=== PATIENT | male | born 1965 | race Caucasian/White ===

== ENCOUNTER 2021-06-30 11:13 | Inpatient (IN) | payer MEDICAID ==
[~2021-06-30] VITALS: Ht 167.6 cm; Wt 76.4 kg
[2021-06-30 12:19] LABS: BASOPHILS % 1.4 % (0.0-2.0); EOSINOPHILS % 3.9 % (0.0-5.0); HEMATOCRIT. 23.4 % (42.0-52.0); HEMOGLOBIN. 7.5 g/dL (14.0-18.0); LYMPHOCYTES % 19.6 % (20.0-50.0); MEAN CORPUSCULAR HEMOGLOBIN 26.1 pg (28.0-32.0); MEAN CORPUSCULAR VOLUME 81.4 fL (80.0-94.0); MEAN PLATELET VOLUME 9.1 fl (7.4-10.4); MONOCYTES % 9.9 % (2.0-8.0); NEUTROPHILS % 65.2 % (40.0-76.0); PLATELET 176 x1000/uL (130-400); RED BLOOD CELL COUNT 2.87 mill/uL (4.7-6.1); RED CELL DISTRIBUTION WIDTH 24.5 % (11.6-14.6)
[2021-06-30 12:27] LABS: CHLORIDE 110 mEq/L (98-107)
[2021-06-30 13:03] LABS: INR 1.5; PARTIAL THROMBOPLASTIN TIME 36.7 sec (23.4-31.0); PROTHROMBIN TIME 15.3 sec (9.6-11.0)
[2021-06-30 13:09] LABS: PLATELET ESTIMATE NORMAL
[2021-06-30] MEDS ORDERED: CEFTRIAXONE 1 G PREMIX 50 ML IV ONE (15:15)
[2021-06-30] MEDS ORDERED: CEFTRIAXONE 1,000 MG in DEXTROSE 5% WATER 50 ML IV NR (17:00)
[2021-06-30 17:58] VITALS: BP 119/65
[2021-06-30 18:00] VITALS: BP 119/65
[2021-06-30] MEDS ORDERED: FERR325T23 MT (18:07)
[2021-06-30] MEDS ORDERED: PANT40TA51 MT (18:07)
[2021-06-30] MEDS ORDERED: ONDANSETRON HCL 4MG/2ML INJ IV PRN (18:15)
[2021-06-30] MEDS ORDERED: ACETAMINOPHEN 325MG TABLET PO PRN ×2 (18:15)
[2021-06-30] MEDS ORDERED: CLONIDINE 0.1MG TABLET PO PRN (18:15)
[2021-06-30] MEDS ORDERED: DEXTROSE 50% WATER 50ML SYRINGE IV PRN (18:15)
[2021-06-30] MEDS ORDERED: DIPHENHYDRAMINE 50MG/ML VIAL IV PRN (18:15)
[2021-06-30 20:15] VITALS: BP 119/69
[2021-06-30] MEDS: BLOOD SUGAR DIAGNOSTIC STRIP TEST SCH (20:34)
[2021-06-30] MEDS: INSULIN LISPRO 100 UNITS/ML SUBCUT SCH (20:34)
[2021-06-30] MEDS: SODIUM CHLORIDE 0.9% INJ 3ML FLUSH IVF SCH (20:50)
[2021-06-30] MEDS: PANTOPRAZOLE SODIUM 40 MG/VIAL IV SCH (20:50)
[2021-06-30 23:38] LABS: CLARITY URINE CLEAR (CLEAR); COLOR URINE YELLOW (YELLOW); KETONES URINE NEGATIVE (NEGATIVE); LEUKOCYTE ESTERASE URINE NEGATIVE (NEGATIVE); NITRITE URINE NEGATIVE (NEGATIVE); OCCULT BLOOD URINE NEGATIVE (NEGATIVE); PROTEIN URINE NEGATIVE (NEGATIVE); SPECIFIC GRAVITY URINE 1.009 (1.005-1.030); UROBILINOGEN URINE 0.2 E.U./dL (0.2-1.0)
[2021-06-30 23:50] VITALS: BP 112/62
[2021-07-01 04:30] VITALS: BP 114/67
[2021-07-01] MEDS: SODIUM CHLORIDE 0.9% INJ 3ML FLUSH IVF SCH ×3 (06:03→21:14)
[2021-07-01] MEDS: BLOOD SUGAR DIAGNOSTIC STRIP TEST SCH (06:29)
[2021-07-01] MEDS: INSULIN LISPRO 100 UNITS/ML SUBCUT SCH (07:13)
[2021-07-01 08:02] VITALS: BP 113/69
[2021-07-01] MEDS: PANTOPRAZOLE SODIUM 40 MG/VIAL IV SCH ×2 (08:58→21:14)
[2021-07-01 10:17] LABS: HEMATOCRIT 24.8 % (42.0-52.0); HEMOGLOBIN 7.8 g/dL (14.0-18.0); MEAN CORPUSCULAR HEMOGLOBIN 25.7 pg (28.0-32.0); MEAN CORPUSCULAR VOLUME 81.7 fL (80.0-94.0); PLATELET 143 x1000/uL (130-400); RED BLOOD CELL COUNT 3.04 mill/uL (4.7-6.1); RED CELL DISTRIBUTION WIDTH 23.4 % (11.6-14.6)
[2021-07-01 10:47] LABS: TOTAL IRON BINDING CAPACITY 337 ug/dL (250-450)
[2021-07-01 11:52] VITALS: BP 111/63
[2021-07-01] MEDS: IRON SUCROSE COMPLEX 100 MG/5 ML ML IV SCH (13:11)
[2021-07-01 15:36] VITALS: BP 120/64
[2021-07-01 20:00] VITALS: BP 121/68
[2021-07-02] VITALS: BP 116/67
[2021-07-02 07:33] VITALS: BP 115/65
[2021-07-02 08:36] LABS: HEMATOCRIT 24.2 % (42.0-52.0); HEMOGLOBIN 7.8 g/dL (14.0-18.0); MEAN CORPUSCULAR VOLUME 81.2 fL (80.0-94.0); PLATELET 164 x1000/uL (130-400); RED BLOOD CELL COUNT 2.98 mill/uL (4.7-6.1); RED CELL DISTRIBUTION WIDTH 23.2 % (11.6-14.6)
[2021-07-02 08:44] LABS: INR 1.5; PROTHROMBIN TIME 15.5 sec (9.6-11.0)
[2021-07-02] MEDS ORDERED: FOLIC ACID 1MG TABLET PO SCH (09:00)
[2021-07-02] MEDS ORDERED: THIAMINE HCL 100MG TABLET PO SCH (09:00)
[2021-07-02 09:19] LABS: FOLIC ACID (FOLATE) SERUM 16.2 ng/mL (>5.38)
[2021-07-02] MEDS: PANTOPRAZOLE SODIUM 40 MG/VIAL IV SCH (09:52)
[2021-07-02] MEDS: IRON SUCROSE COMPLEX 100 MG/5 ML ML IV SCH (09:52)
[2021-07-02] MEDS ORDERED: *PATIENT'S OWN MEDICATION STORAGE XX SCH (10:15)
[2021-07-02 11:50] VITALS: BP 113/65
[2021-07-02] MEDS: SODIUM CHLORIDE 0.9% INJ 3ML FLUSH IVF SCH (13:46)
[2021-07-02 15:50] VITALS: BP 119/63
[2021-07-02 16:01] VITALS: BP 119/63
== END 2021-07-02 18:24 | disposition home or self-care (01) | DRG 280 ==
LOC: ER 11:13 → 6WST 13:50 → ENRESERV 15:24
PROVIDERS: ADMIT Internal Medicine; ATTEND Internal Medicine
PROC: 0W9G3ZZ Drainage of Peritoneal Cavity, Percutaneous Approach (ICD-10-PCS; principal; 2021-07-02)
DX: K70.31 Alcoholic cirrhosis of liver with ascites (principal); K85.90 Acute pancreatitis without necrosis or infection, unspecified; E43 Unspecified severe protein-calorie malnutrition; D68.4 Acquired coagulation factor deficiency; K76.6 Portal hypertension; K57.91 Diverticulosis of intestine, part unspecified, without perforation or abscess with bleeding; E88.09 Other disorders of plasma-protein metabolism, not elsewhere classified; C64.2 Malignant neoplasm of left kidney, except renal pelvis; K31.9 Disease of stomach and duodenum, unspecified; D50.9 Iron deficiency anemia, unspecified; F17.200 Nicotine dependence, unspecified, uncomplicated; J44.9 Chronic obstructive pulmonary disease, unspecified; Z20.822 Contact with and (suspected) exposure to COVID-19; F41.9 Anxiety disorder, unspecified; K21.9 Gastro-esophageal reflux disease without esophagitis; K86.1 Other chronic pancreatitis; K80.20 Calculus of gallbladder without cholecystitis without obstruction; F10.10 Alcohol abuse, uncomplicated; Y90.9 Presence of alcohol in blood, level not specified; Z79.899 Other long term (current) drug therapy; Z88.6 Allergy status to analgesic agent; Z68.27 Body mass index [BMI] 27.0-27.9, adult; Z87.19 Personal history of other diseases of the digestive system; N28.89 Other specified disorders of kidney and ureter; K64.9 Unspecified hemorrhoids
CPT/HCPCS: 36415; 49083; 71045; 74176; 76705; 80053; 80076; 81003; 82270; 82607; 82728; 82746; 82962; 83036; 83540; 83550; 83615; 84484; 85025; 85027; 85044; 86850; 86900; 87426; 93005; 99285; C9113; J0696; J7060

== ENCOUNTER 2022-12-07 15:26 | Inpatient (IN) | payer MEDICAID ==
[~2022-12-07] VITALS: Ht 167.6 cm; Wt 83.9 kg
[~2022-12-07 15:26] MED LIST: FERR325T23 MT; PANT40TA51 MT
[2022-12-07] MEDS ORDERED: SUCCINYLCHOLINE CHLORIDE 200MG/10ML IV ONE (15:45)
[2022-12-07] MEDS ORDERED: ETOMIDATE 2MG/ML 10ML VIAL IV ONE (15:45)
[2022-12-07 15:58] LABS: BASOPHILS % 0.7 % (0.0-2.0); EOSINOPHILS % 1.6 % (0.0-5.0); HEMATOCRIT. 39.5 % (42.0-52.0); HEMOGLOBIN. 12.9 g/dL (14.0-18.0); LYMPHOCYTES % 23.6 % (20.0-50.0); MEAN CORPUSCULAR HEMOGLOBIN 28.9 pg (28.0-32.0); MEAN CORPUSCULAR HGB CONC 32.7 g/dL (31.0-37.0); MEAN CORPUSCULAR VOLUME 88.2 fL (80.0-94.0); MEAN PLATELET VOLUME 8.7 fl (7.4-10.4); MONOCYTES % 8.2 % (2.0-8.0); NEUTROPHILS % 65.9 % (40.0-76.0); PLATELET 118 x1000/uL (130-400); RED BLOOD CELL COUNT 4.48 mill/uL (4.7-6.1); RED CELL DISTRIBUTION WIDTH 16.8 % (11.6-14.6); WHITE BLOOD COUNT 9.5 x1000/uL (4.5-11.0)
[2022-12-07 16:00] VITALS: PULSE 112; RESP 14
[2022-12-07 16:03] LABS: CHLORIDE 107 mEq/L (98-107); INDEX HEMOLYSI 1 (1-3); INDEX ICTERIC 1 (1-4); INDEX LIPEMIC 1 (1-3); POTASSIUM 3.1 mEq/L (3.5-5.1); SODIUM 137 mEq/L (136-145)
[2022-12-07 16:04] LABS: INR 1.3
[2022-12-07 16:07] LABS: AMMONIA 49 uMol/L (<32)
[2022-12-07 16:11] LABS: ACETAMINOPHEN <2 ug/mL ug/mL (10-30); ALANINE AMINOTRANSFERASE 29 IU/L (13-61); ALBUMIN 2.9 g/dL (3.4-5.0); ASPARTATE AMINOTRANSFERASE 55 IU/L (15-37); BILIRUBIN TOTAL 1.8 mg/dL (0.1-1.0); CALCIUM 8.5 mg/dL (8.5-10.1); CARBON DIOXIDE 21 mEq/L (21-32); CREATININE 0.5 mg/dL (0.6-1.3); ETHANOL BLOOD < 10 mg/dL (<10); GLUCOSE 192 mg/dL (70-105); PROTEIN TOTAL 8.7 g/dL (6.0-8.3); UREA NITROGEN BLOOD 8 mg/dL (7-21)
[2022-12-07] MEDS ORDERED: MIDAZOLAM 100MG/100ML PMX 100 ML IV PRN (16:15)
[2022-12-07 16:29] LABS: TROPONIN I HIGH SENSITIVITY 4 ng/L (<78)
[2022-12-07] MEDS ORDERED: PROPOFOL 200MG/20ML VIAL IV ONE (16:30)
[2022-12-07] MEDS ORDERED: MIDAZOLAM HCL 100 MG in SODIUM CHLORIDE 0.9% 100 ML IV PRN (16:30)
[2022-12-07] MEDS ORDERED: NICARDIPINE 40MG/200ML PREMIX 200 ML IV NR (16:40)
[2022-12-07] MEDS ORDERED: LEVETIRACETAM 500MG PREMIX 100 ML IV ONE (16:45)
[2022-12-07] MEDS ORDERED: LEVETIRACETAM 1000MG PREMIX 100 ML IV NR (16:56)
[2022-12-07 16:57] VITALS: O2SAT 100
[2022-12-07] MEDS ORDERED: MANNITOL 12.5G (25%) VIAL 50ML IV NR (17:00)
[2022-12-07] MEDS ORDERED: DESMOPRESSIN ACETATE IV NR (17:15)
[2022-12-07] MEDS ORDERED: SODIUM CHLORIDE 0.9% IV NR (17:15)
[2022-12-07 17:17] LABS: CLARITY URINE CLOUDY (CLEAR); COLOR URINE DARK YELLOW (YELLOW); GLUCOSE URINE NEGATIVE (NEGATIVE); KETONES URINE NEGATIVE (NEGATIVE); LEUKOCYTE ESTERASE URINE 2+ (NEGATIVE); NITRITE URINE NEGATIVE (NEGATIVE); OCCULT BLOOD URINE 2+ (NEGATIVE); PH URINE 5.5 (4.5-8.0); PROTEIN URINE 2+ (NEGATIVE); SPECIFIC GRAVITY URINE 1.023 (1.005-1.030)
[2022-12-07] MEDS ORDERED: MANNITOL IV NR (17:30)
[2022-12-07 17:55] LABS: *AMPHETAMINES SCREEN URINE NEGATIVE (NEGATIVE); *BARBITURATES SCREEN URINE NEGATIVE (NEGATIVE); *BENZODIAZEPINES SCREEN URINE NEGATIVE (NEGATIVE); *COCAINE SCREEN URINE NEGATIVE (NEGATIVE); CANNABINOID URINE SCREEN NEGATIVE (NEGATIVE); ECSTASY MDMA SCREEN URINE NEGATIVE (NEGATIVE); METHADONE URINE SCREEN NEGATIVE (NEGATIVE); OPIATES URINE SCREEN NEGATIVE (NEGATIVE); PHENCYCLIDINE URINE SCREEN NEGATIVE (NEGATIVE)
[2022-12-07 18:18] LABS: BACTERIA URINE 1+; SQUAMOUS EPITHELIAL CELL URINE FEW /lpf (RARE/1+); WBC URINE 25-50 /hpf (0-2)
[2022-12-07] MEDS ORDERED: IPRATROPIUM/ALBUTEROL 0.5-3(2.5)MG/3ML NEB HHN PRN (20:00)
[2022-12-07] MEDS ORDERED: IOHEXOL-350 100 ML BOTTLE ONE (20:03)
[2022-12-07 20:25] VITALS: PULSE 122; RESP 24
[2022-12-08] VITALS (62 sets, daily range): BP systolic 104–160; BP diastolic 56–87; PULSE 82–122; RESP 18–28; TEMP 99–102
[2022-12-08] MEDS ORDERED: NICARDIPINE 100 MG in SODIUM CHLORIDE 0.9% 60 ML IV PRN ×2
[2022-12-08] MEDS ORDERED: NALOXONE HCL 0.4MG/ML VIAL IV PRN (00:15)
[2022-12-08] MEDS ORDERED: CEFAZOLIN 1000MG PREMIX 50 ML IV SCH (06:00)
[2022-12-08] MEDS ORDERED: LEVETIRACETAM 500MG PREMIX 100 ML IV SCH (09:00)
[2022-12-08 09:53] LABS: BG BASE EXCESS 3.4 mmol/L (-2.0-2.0); BG CARBOXYHEMOGLOBIN 0.2 % (0.5-1.5); BG DEOXYHEMOGLOBIN 0.9 % (0.0-5.0); BG FRACTION INSPIRED OXYGEN 100; BG HCO3 ACT 25.7 mmol/L (22.0-26.0); BG METHEMOGLOBIN 0.6 % (0.0-1.5); BG OXYGEN SATURATION 99.1 % (92.0-98.5); BG OXYHEMOGLOBIN 98.3 % (94.0-97.0); BG PCO2 31.8 mmHg (35.0-45.0); BG PH 7.525 (7.350-7.450); BG PO2 283.3 mmHg (75.0-100.0); BG SAMPLE SITE RIGHT RADIAL; BG TOTAL HEMOGLOBIN 13.2 g/dL (12.0-18.0); BG VENT MODE VENT - AC
[2022-12-08] MEDS: CEFAZOLIN 1000MG PREMIX 50 ML IV SCH ×2 (14:25→19:40)
[2022-12-08] MEDS: LEVETIRACETAM 500MG PREMIX 100 ML IV SCH ×2 (14:26→21:56)
[2022-12-08] MEDS: NICARDIPINE 100 MG in SODIUM CHLORIDE 0.9% 60 ML IV PRN (19:40)
[2022-12-08] MEDS: MORPHINE SULFATE 4 MG/ML CPJ (NOT FOR IM USE) IV PRN (20:02)
[2022-12-08] MEDS ORDERED: MANNITOL 12.5G (25%) VIAL 50ML IV ONE (21:30)
[2022-12-08] MEDS ORDERED: MANNITOL 20% (20GM/100ML) BAG 500ML PREMIX IV ONE (21:30)
[2022-12-08] MEDS ORDERED: MANNITOL 20% 125 ML IV NR (23:00)
[2022-12-09] VITALS (100 sets, daily range): BP systolic 103–131; BP diastolic 59–78; PULSE 95–119; RESP 13–22; TEMP 97.3–99.7
[2022-12-09] MEDS: MORPHINE SULFATE 4 MG/ML CPJ (NOT FOR IM USE) IV PRN ×2 (01:03→21:26)
[2022-12-09] MEDS: CEFAZOLIN 1000MG PREMIX 50 ML IV SCH ×3 (03:48→20:40)
[2022-12-09 05:29] LABS: HEMATOCRIT. 38.6 % (42.0-52.0); HEMOGLOBIN. 12.4 g/dL (14.0-18.0); MEAN CORPUSCULAR HEMOGLOBIN 28.6 pg (28.0-32.0); MEAN CORPUSCULAR HGB CONC 32.2 g/dL (31.0-37.0); MEAN CORPUSCULAR VOLUME 88.9 fL (80.0-94.0); MEAN PLATELET VOLUME 9.1 fl (7.4-10.4); PLATELET 106 x1000/uL (130-400); RED BLOOD CELL COUNT 4.34 mill/uL (4.7-6.1); WHITE BLOOD COUNT 11.7 x1000/uL (4.5-11.0)
[2022-12-09 05:30] LABS: DIFFERENTIAL COMMENT 1
[2022-12-09 05:46] LABS: CALCIUM 8.2 mg/dL (8.5-10.1); CHLORIDE 112 mEq/L (98-107); INDEX HEMOLYSI 1 (1-3); INDEX ICTERIC 2 (1-4); INDEX LIPEMIC 1 (1-3); POTASSIUM 3.7 mEq/L (3.5-5.1); SODIUM 139 mEq/L (136-145)
[2022-12-09 05:53] LABS: CARBON DIOXIDE 26 mEq/L (21-32); CREATININE 0.9 mg/dL (0.6-1.3); GLUCOSE 168 mg/dL (70-105); UREA NITROGEN BLOOD 22 mg/dL (7-21)
[2022-12-09 09:01] LABS: BG BASE EXCESS -0.3 mmol/L (-2.0-2.0); BG CARBOXYHEMOGLOBIN 0.7 % (0.5-1.5); BG DEOXYHEMOGLOBIN 1.7 % (0.0-5.0); BG FRACTION INSPIRED OXYGEN 40; BG HCO3 ACT 24.2 mmol/L (22.0-26.0); BG METHEMOGLOBIN 0.1 % (0.0-1.5); BG OXYGEN SATURATION 98.3 % (92.0-98.5); BG OXYHEMOGLOBIN 97.5 % (94.0-97.0); BG PCO2 39.3 mmHg (35.0-45.0); BG PH 7.407 (7.350-7.450); BG PO2 105.9 mmHg (75.0-100.0); BG SAMPLE SITE RIGHT RADIAL; BG TOTAL HEMOGLOBIN 13.9 g/dL (12.0-18.0); BG VENT MODE VENT - AC
[2022-12-09 09:27] LABS: ANISOCYTOSIS 1+; PLATELET ESTIMATE SLIGHTLY DECREASED
[2022-12-09] MEDS: LEVETIRACETAM 500MG PREMIX 100 ML IV SCH ×2 (09:42→21:25)
[2022-12-09] MEDS: NICARDIPINE 100 MG in SODIUM CHLORIDE 0.9% 60 ML IV PRN (09:50)
[2022-12-09] MEDS: METRONIDAZOLE 500 MG PREMIX 100 ML IV SCH ×2 (16:17→23:59)
[2022-12-09] MEDS: CEFEPIME 2,000 MG in DEXT 5% WATER 100 ML IV SCH ×2 (16:17→23:23)
[2022-12-09] MEDS: DEXT 5%/LACTATED RINGERS 1,000 ML IV SCH (16:41)
[2022-12-10] VITALS (105 sets, daily range): BP systolic 110–142; BP diastolic 61–81; PULSE 78–118; RESP 11–26; TEMP 97–98.8
[2022-12-10] MEDS: CEFAZOLIN 1000MG PREMIX 50 ML IV SCH ×2 (04:03→11:55)
[2022-12-10] MEDS: METRONIDAZOLE 500 MG PREMIX 100 ML IV SCH ×3 (08:16→23:51)
[2022-12-10] MEDS: CEFEPIME 2,000 MG in DEXT 5% WATER 100 ML IV SCH ×3 (08:16→23:04)
[2022-12-10] MEDS: LEVETIRACETAM 500MG PREMIX 100 ML IV SCH ×2 (10:48→22:12)
[2022-12-10] MEDS: DEXT 5%/LACTATED RINGERS 1,000 ML IV SCH (11:57)
[2022-12-10] MEDS: MORPHINE SULFATE 4 MG/ML CPJ (NOT FOR IM USE) IV PRN ×2 (17:17→23:05)
[2022-12-11] VITALS (109 sets, daily range): BP systolic 34–146; BP diastolic 21–113; PULSE 108–157; RESP 14–31; TEMP 98.5–103.1
[2022-12-11] MEDS: NICARDIPINE 100 MG in SODIUM CHLORIDE 0.9% 60 ML IV PRN (02:39)
[2022-12-11] MEDS: MORPHINE SULFATE 4 MG/ML CPJ (NOT FOR IM USE) IV PRN ×2 (05:54→18:31)
[2022-12-11] MEDS: CEFEPIME 2,000 MG in DEXT 5% WATER 100 ML IV SCH ×2 (09:13→15:13)
[2022-12-11] MEDS: METRONIDAZOLE 500 MG PREMIX 100 ML IV SCH ×2 (09:13→15:13)
[2022-12-11] MEDS: LEVETIRACETAM 500MG PREMIX 100 ML IV SCH ×2 (09:13→21:01)
[2022-12-11] MEDS: DEXT 5%/LACTATED RINGERS 1,000 ML IV SCH (09:14)
[2022-12-11 12:55] LABS: BASOPHILS % 0.5 % (0.0-2.0); EOSINOPHILS % 0.2 % (0.0-5.0); HEMATOCRIT. 32.4 % (42.0-52.0); HEMOGLOBIN. 10.3 g/dL (14.0-18.0); LYMPHOCYTES % 12.4 % (20.0-50.0); MEAN CORPUSCULAR HEMOGLOBIN 28.9 pg (28.0-32.0); MEAN CORPUSCULAR HGB CONC 31.9 g/dL (31.0-37.0); MEAN CORPUSCULAR VOLUME 90.7 fL (80.0-94.0); MEAN PLATELET VOLUME 8.5 fl (7.4-10.4); MONOCYTES % 14.9 % (2.0-8.0); PLATELET 119 x1000/uL (130-400); RED BLOOD CELL COUNT 3.58 mill/uL (4.7-6.1); RED CELL DISTRIBUTION WIDTH 17.2 % (11.6-14.6); WHITE BLOOD COUNT 14.3 x1000/uL (4.5-11.0)
[2022-12-11 13:11] LABS: CALCIUM 7.9 mg/dL (8.5-10.1); CARBON DIOXIDE 22 mEq/L (21-32); CHLORIDE 128 mEq/L (98-107); GLUCOSE 158 mg/dL (70-105); INDEX HEMOLYSI 1 (1-3); INDEX ICTERIC 1 (1-4); INDEX LIPEMIC 1 (1-3); POTASSIUM 3.8 mEq/L (3.5-5.1); SODIUM 154 mEq/L (136-145); UREA NITROGEN BLOOD 43 mg/dL (7-21)
[2022-12-11 13:14] LABS: CREATININE 0.7 mg/dL (0.6-1.3)
[2022-12-11] MEDS: IPRATROPIUM BROMIDE (0.02%) 0.5MG/2.5ML NEB HHN SCH ×2 (14:04→20:19)
[2022-12-11] MEDS ORDERED: METOPROLOL TARTRATE 5MG/5ML VIAL IV NR (17:45)
[2022-12-11] MEDS: PHENYLEPHRINE 100 MG in DEXT 5% WATER 240 ML IV PRN (19:54)
[2022-12-11] MEDS ORDERED: PHENYLEPHRINE 50 MG in DEXT 5% WATER 245 ML IV PRN (23:00)
[2022-12-11] MEDS ORDERED: NOREPINEPHRINE 8 MG in DEXT 5% WATER 242 ML IV PRN (23:15)
[2022-12-11] MEDS ORDERED: VANCOMYCIN 1.25GM PMX (XELLIA) 250 ML IV SCH (23:30)
[2022-12-11] MEDS: VASOPRESSIN 20 UNIT in SODIUM CHLORIDE 0.9% 99 ML IV PRN (23:37)
[2022-12-12] VITALS (24 sets, daily range): BP systolic 45–87; BP diastolic 17–61; PULSE 97–131; RESP 7–17; TEMP 99.5
[2022-12-12] MEDS: METRONIDAZOLE 500 MG PREMIX 100 ML IV SCH (00:23)
[2022-12-12] MEDS: CEFEPIME 2,000 MG in DEXT 5% WATER 100 ML IV SCH (00:24)
[2022-12-12] MEDS: NOREPINEPHRINE 8MG/250ML PMX 250ML IV PRN ×4 (01:13→06:12)
[2022-12-12] MEDS: PHENYLEPHRINE 100 MG in DEXT 5% WATER 240 ML IV PRN (02:02)
[2022-12-12] MEDS: IPRATROPIUM BROMIDE (0.02%) 0.5MG/2.5ML NEB HHN SCH (02:05)
[2022-12-12] MEDS: VASOPRESSIN 20 UNIT in SODIUM CHLORIDE 0.9% 99 ML IV PRN (03:12)
[2022-12-12] MEDS: DEXT 5%/LACTATED RINGERS 1,000 ML IV SCH (06:13)
[2022-12-12] MEDS ORDERED: DOPAMINE 800MG/500ML PREMIX 500 ML IV PRN (07:00)
[2022-12-12] MEDS ORDERED: EPINEPHRINE 10 MG in SODIUM CHLORIDE 0.9% 240 ML IV PRN (07:00)
[2022-12-12] MEDS ORDERED: DOPAMINE 400 MG PREMIX 250 ML IV PRN (07:15)
== END 2022-12-12 07:14 | DRG 21 ==
LOC: ER 15:26 → EDBEDREQ 17:19 → MICUSO 17:43 → EDBEDREQTM 17:49 → EDBEDREQ 17:49 → MICUNO 12-08 01:40 → MICUSO 12-08 08:00
PROVIDERS: ADMIT Internal Medicine; ATTEND Internal Medicine
PROC: 5A1955Z Respiratory Ventilation, Greater than 96 Consecutive Hours (ICD-10-PCS; principal; 2022-12-07)
PROC: 009630Z Drainage of Cerebral Ventricle with Drainage Device, Percutaneous Approach (ICD-10-PCS; 2022-12-07)
PROC: 0BH17EZ Insertion of Endotracheal Airway into Trachea, Via Natural or Artificial Opening (ICD-10-PCS; 2022-12-07)
PROC: 5A12012 Performance of Cardiac Output, Single, Manual (ICD-10-PCS; 2022-12-12)
PROC: 06HY33Z Insertion of Infusion Device into Lower Vein, Percutaneous Approach (ICD-10-PCS; 2022-12-12)
PROC: B54BZZA Ultrasonography of Right Lower Extremity Veins, Guidance (ICD-10-PCS; 2022-12-12)
DX: I61.5 Nontraumatic intracerebral hemorrhage, intraventricular (principal); J96.00 Acute respiratory failure, unspecified whether with hypoxia or hypercapnia; G93.40 Encephalopathy, unspecified; G93.6 Cerebral edema; E44.1 Mild protein-calorie malnutrition; E87.6 Hypokalemia; G91.9 Hydrocephalus, unspecified; I61.8 Other nontraumatic intracerebral hemorrhage; F10.20 Alcohol dependence, uncomplicated; Y90.9 Presence of alcohol in blood, level not specified; K70.30 Alcoholic cirrhosis of liver without ascites; D64.9 Anemia, unspecified; D69.6 Thrombocytopenia, unspecified; N39.0 Urinary tract infection, site not specified; Z88.6 Allergy status to analgesic agent; Z98.2 Presence of cerebrospinal fluid drainage device; Z68.29 Body mass index [BMI] 29.0-29.9, adult
CPT/HCPCS: 31500; 36415; 36600; 70496; 70498; 71045; 80048; 80053; 80305; 80307; 80320; 80329; 81003; 82140; 82375; 82805; 82962; 83735; 84484; 85025; 87077; 87186; 92950; 93005; 94002; 94003; 94640; 99291; J0690; J0692; J1265; J1953; J2150; J2250; J2270; J2370; J2597; J2704; J3370; J3490; J7050; J7060; J7121; Q9967; G0480